=== PATIENT | female | born 1970 | race Two or more races ===

== ENCOUNTER 2017-07-16 21:54 | Emergency (ER) | payer SELFPAY ==
[~2017-07-16] VITALS: Ht 165.1 cm; Wt 87.1 kg
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
--- NOTE | 2017-07-16 22:40 | NUR ---
SPOKE TO JOSLYN FONTANA RN SUP PT NEEDS TO BE TRANSFERRED TO FACILITY FOR CT SCAN. PER RN SUP JENNY.
[2017-07-16] MEDS ORDERED: ONDANSETRON HCL/PF 4 MG/2 ML VIAL ONE (22:57)
[2017-07-16] MEDS ORDERED: MORPHINE SULFATE INJ 4 MG/ML DISP.SYRIN ONE (22:58)
[2017-07-16] MEDS ORDERED: IV NS 0.9% 1,000 ML BAG IV ONE (23:00)
[2017-07-16] MEDS ORDERED: ONDANSETRON HCL/PF 4 MG/2 ML VIAL IVP ONE (23:00)
[2017-07-16] MEDS ORDERED: MORPHINE SULFATE INJ 2 MG/ML DISP.SYRIN IV ONE (23:00)
[2017-07-16 23:29] LABS: CALCIUM, SERUM 8.1 mg/dL (8.5-10.1); CREATININE 0.9 mg/dL (0.6-1.3)
[2017-07-16 23:36] LABS: POTASSIUM 3.5 mmol/L (3.5-5.1)
--- NOTE | 2017-07-17 00:26 | NUR ---
RECEIVED REPORT FROM PERLA JEAN-BAPTISTE FOR [facility].
[2017-07-17 02:45] VITALS: BP 110/62
--- NOTE | 2017-07-17 02:49 | NUR ---
Patient discharged to home in stable condition. Written and verbal after care instructions along with RX given. Patient verbalizes understanding of instruction.IV removed. Catheter intact and site benign. Pressure and 4x4 applied to site. No bleeding noted. VSS upon discharge. Pt wheelchaired out by EMT Geraldo
== END 2017-07-17 02:48 | disposition home or self-care (01) ==
LOC: ER 21:56
DX: S20.212A Contusion of left front wall of thorax, initial encounter (principal); S39.012A Strain of muscle, fascia and tendon of lower back, initial encounter; R10.32 Left lower quadrant pain; Z91.013 Allergy to seafood; V49.49XA Driver injured in collision with other motor vehicles in traffic accident, initial encounter; Y93.89 Activity, other specified; Y92.413 State road as the place of occurrence of the external cause; Y99.8 Other external cause status
CPT/HCPCS: 36415; 71045-TC; 80048-TC; A4606; J2270; J2405; J7030; Z7610